=== PATIENT | female | born 1935 | race Caucasian/White ===

== ENCOUNTER → 2016-08-28 | Day surgery (SDC) | payer MEDICARE ==
--- NOTE | 2016-08-27 10:59 | SC.ANESEVA ---
Anesthesia Eval & Plan ([facility]) - Providers Stated Procedure: left eye cataract surgery - Medications/Allergies Allergies: Allergies adhesive tape Allergy (Verified 08/22/16 13:47) Rash-Localized gabapentin Allergy (Verified 08/22/16 13:47) See Comments GENERALIZED EDEMA lisinopril Allergy (Verified 08/22/16 13:47) Edema-Localized THROAT SWELLING morphine Allergy (Verified 08/22/16 13:47) Nausea/Vomiting Penicillins Allergy (Verified 08/22/16 13:47) Rash-Generalized pregabalin [From Lyrica] Allergy (Verified 08/22/16 13:47) See Comments GENERALIZED EDEMA Home Medications: Home Medication List Levothyroxine Sodium [Tirosint] 50 mcg PO DAILY 08/22/16 [History] Magnesium 30 mg PO DAILY 08/22/16 [History] Oxycodone HCl/Acetaminophen [Percocet 7.5-325 mg Tablet] 1 tab PO Q6 PRN [History] Potassium 1 tab PO DAILY 08/22/16 [History] Rivaroxaban [Xarelto] 20 mg PO DAILY 08/22/16 [History] Current Medication List: Reviewed - Focused Physical Exam NPO since: Since after Midnight Mallampati: Class II Thyromental Distance: Greater than 3 Neck: Full Range of Motion Dental: Normal - no significant findings Cardiovascular/Chest: Normal (RRR no mumurs or rubs.) Respiratory: Lungs clear. negative: Wheezing Any problems with anesthesia, including nausea and vomiting?: No Any relatives with a history of Malignant Hyperthermia?: No Prone to Motion Sickness: No Other: Diagnoses AGE-RELATED NUCLEAR CATARACT, LEFT EYE (08/28/16) Problem List Problem Status Onset CHF exacerbation Acute Hypoxemia requiring supplemental oxygen Acute Atrial fibrillation Chronic Diabetes mellitus type 2 in nonobese Chronic History of pulmonary embolus (PE) Chronic Hyperlipidemia Chronic Hypertension Chronic Hypothyroidism Chronic Allergies Allergy/AdvReac Type Severity Reaction Status Date / Time adhesive tape Allergy Rash-Locali Verified 08/22/16 13:47 zed gabapentin Allergy See Verified 08/22/16 13:47 Comments lisinopril Allergy Edema-Local Verified 08/22/16 13:47 ized morphine Allergy Nausea/Vomi Verified 08/22/16 13:47 ting Penicillins Allergy Rash-Genera Verified 08/22/16 13:47 lized pregabalin [From Lyrica] Allergy See Verified 08/22/16 13:47 Comments Home Medications Medication Instructions Recorded Last Taken Type Digoxin 125 mcg PO DAILY 11/01/12 06/20/16 08:00 History Glipizide [Glucotrol] 5 mg PO BIDAC 11/01/12 06/20/16 08:00 History Insulin Detemir [Levemir Flexpen] 30 unit SQ HS 11/01/12 06/19/16 History Losartan Potassium [Cozaar] 50 mg PO DAILY 11/01/12 06/19/16 History Metformin HCl [Glucophage] 1,000 mg PO BID 11/01/12 06/16/16 History Pantoprazole Sodium [Protonix] 40 mg PO DAILY 11/01/12 06/20/16 05:00 History Pravastatin [Pravachol] 20 mg PO HS 11/01/12 06/19/16 History Furosemide [Lasix] 40 mg PO DAILY 11/04/12 06/20/16 08:00 History Multivitamin [Multiple Vitamins] 1 each PO DAILY 02/24/13 06/19/16 History Metoprolol Succinate [Toprol Xl] 25 mg PO DAILY 09/23/15 06/19/16 History Ezetimibe [Zetia] 10 mg PO DAILY 06/17/16 06/20/16 08:00 History Levothyroxine Sodium [Tirosint] 50 mcg PO DAILY 08/22/16 Unknown History Magnesium 30 mg PO DAILY 08/22/16 Unknown History Oxycodone HCl/Acetaminophen 1 tab PO Q6 PRN 08/22/16 Unknown History [Percocet 7.5-325 mg Tablet] Potassium 1 tab PO DAILY 08/22/16 Unknown History Rivaroxaban [Xarelto] 20 mg PO DAILY 08/22/16 Unknown History Height and Weight Patient's height 5 ft 8 in Patient's weight 82.372 kg BMI 28.4 - Anesthetic Plan Anesthesia Type: MAC ASA Class: 4 - Focused Review of Systems Cardiac History: Yes: Hx Hypertension, Hx Cardiac Catheterization, Hx Pacemaker , Hx Internal Defibrillator, Hx Cardia Arrhythmia, Hx Afib/Aflutter (FIB), Hx Cardiac Disorders, Hx Abnormal Cholesterol/Hyperlipidemia, Hx Congestive Heart Failure (HX) No: Hx Angina HEENT: Yes: Cataracts, Hx Vision Problem (GLASSES), Other HEENT Problems Respiratory: Yes: Hx Snoring Gastrointestinal: Yes: Hx Gastroesophageal Reflux Disease, Hx Gastrointestinal Disorders, Hx Colonoscopy ([facility] 2 YRS AGO), Hx Endoscopy Neurological/Musculoskeletal: Yes: HX Cerebrovascular Accident, Hx Back Pain, Hx Neurological Disorders No: Hx Seizures Endocrine: Yes: Hx Insulin Dependent Diabetes, Hx Hypothyroidism No: Hx Diet Controlled Diabetes Blood/Autoimmune: Yes: Hx Blood Transfusions, Hx Anemia No: Hx AIDS, Hx Hepatitis (type) Smoking Status: Never smoker Past Social History: Denies: Substance Use Disorder Surgical History: Yes: Cholecystectomy, Bladder Tact, Back Other Surgical History: 1994 SPINAL SURGERY
[~2016-08-28] MED LIST: ACETAZOLAMIDE 250 MG TAB PO ONE; BSS 500 ml-Vancomycin 10 mg-Phenylephrine 1 mg Irrigation IR ONE; CHONDROITIN SULFATE 0.5 ML/PFS INTRAOC ONE; DEXAMETHASONE 4 MG/ML VIAL IV PRN; DIAZEPAM 5 MG TAB PO PRN; FENTANYL 100 MCG/2 ML VIAL ONE; Hyaluronate Sodium (Provisc) 5.5 mg/0.55 ml syringe INTRAOC ONE; LABETALOL 20 MG/4 ML SYRINGE IV PRN; MIDAZOLAM 2 MG/2 ML VIAL ONE; ONDANSETRON HCL 4 MG/2 ML VIAL IV PRN; PHENYLEPHRINE 2.5% OPHTH SOLN 2 ML BOT OP EYE ONE; SCOPOLAMINE TRANSDERMAL PATCH TOP ONE; TETRACAINE 0.5% 4 ML OPHTH SOLN OP EYE ONE; TETRACAINE 0.5% 4 ML OPHTH SOLN OP EYE PRN; TROPICAMIDE 1% OPHTH SOLN 2 ML BOTTLE OP EYE ONE; Vancomycin 10 MG, Phenylephrine 1,000 MCG in Balanced Salt Solution 500 ML IO ONE; hydrALAZINE 20 MG/ML VIAL IV PRN
[2016-08-28 06:38] VITALS: TEMP 97.6; BMI 27.6
[2016-08-28 08:44] VITALS: BP 175/69; PULSE 64
--- NOTE | 2016-08-28 08:46 | SC.ANESPOS ---
Post-Anesthesia Note LOC: Fully Awake Post-Anesthesia Assessment: Awake, Returned to Baseline, Hemodynamically Stable , Pain Control Adequate Phase I & II Recovery Complete: Yes Apparent Anesthesia Complication: No : N - Vital Signs Blood Pressure: 175/69 Pulse: 64 Resp Rate: 16 O2 Sat: 95 Temp: 97.6 F
--- NOTE | 2016-08-28 08:48 | HIMOPRPT ---
DATE OF PROCEDURE: 08/28/16 PREOPERATIVE DIAGNOSIS: Cataract left eye. POSTOPERATIVE DIAGNOSIS: Cataract left eye. PROCEDURE: Cataract extraction by phacoemulsification of the left eye SURGEON: Lindsey Faye MD. ANESTHESIA: IV Sedation/Topical. COMPLICATIONS: None. PRE-OPERATIVE EVALUATION: The patient has been examined and deemed medically stable for cataract extraction with no apparent need for inpatient observation; outpatient setting is appropriate. Patient appears to be oriented to time, place and person. PROCEDURE IN DETAIL: The correct eye confirmed by patient, doctor, staff and paperwork. The operative eye was then marked by the doctor in the preoperative area. Eye drops were instilled into the operative eye to dilate the pupil. The patient was transported to the operating room and was placed in the supine position. A time out was performed before the beginning of the procedure. The operative eye was prepped and draped in the usual sterile fashion for ophthalmic surgery, taking care to isolate the lashes from the surgical field. Topical anesthetic drops were instilled into the operative eye. A lid speculum was placed. Betadine 5% was instilled in the operative eye for antiseptic. Microscope was brought into place for use throughout the case. The eye was inspected. A paracentesis incision was created with a side port knife. The temporal limbal corneal incision was performed with a drew blade. Viscoelastic was injected into the anterior chamber. Capsule forceps were used to create a capsulorhexis. Hydrodissection was performed with BSS. The nucleus was removed by phacoemulsification. Phaco time is noted below. The remaining cortical material was removed by I&A. The capsular bag was noted to be intact and distended with viscoelastic. The Intraocular lens was placed into the intact bag and centered without difficulty. The remaining viscoelastic was removed by I&A. Betadine 5% drops were placed to inspect wound and for antisepsis. Inspection revealed watertight wounds. The lid speculum was removed. Postoperative medications were instilled into the eye and a shield secured over the operative eye. IOL Type [id number] SN [id number] IOL Power 21.5 CDE 4.19 Discharge Summary: There were no complications and the patient was taken to the postoperative area in good condition. Postoperative instructions and outpatient follow up time were given.
== END ==
LOC: CPSC 05:50
PROVIDERS: ATTEND Ophthalmology
PROC: 08RK3JZ Replacement of Left Lens with Synthetic Substitute, Percutaneous Approach (ICD-10-PCS; principal; 2016-08-28 08:30)
DX: H25.12 Age-related nuclear cataract, left eye (principal); I10 Essential (primary) hypertension; I50.9 Heart failure, unspecified; I48.91 Unspecified atrial fibrillation; E11.9 Type 2 diabetes mellitus without complications; E78.5 Hyperlipidemia, unspecified; E03.9 Hypothyroidism, unspecified; G47.30 Sleep apnea, unspecified; K21.9 Gastro-esophageal reflux disease without esophagitis; G62.9 Polyneuropathy, unspecified; M19.90 Unspecified osteoarthritis, unspecified site; Z79.4 Long term (current) use of insulin; Z79.899 Other long term (current) drug therapy; Z86.73 Personal history of transient ischemic attack (TIA), and cerebral infarction without residual deficits; Z95.810 Presence of automatic (implantable) cardiac defibrillator
CPT/HCPCS: 66984; 82962; A9270; J2250; J3010; V2632; J3490